=== PATIENT | male | born 1965 | race African-American/Black ===

== ENCOUNTER 2018-02-07 14:11 | Emergency (ER) | payer MEDICAID ==
[~2018-02-07] VITALS: Ht 182.9 cm; Wt 111.0 kg
[~2018-02-07 14:11] MED LIST: FOLI-43; KEPP500; PHEN100O2
[2018-02-07 14:35] VITALS: BP 106/79
== END 2018-02-07 17:33 | disposition home or self-care (01) ==
LOC: ER 15:48
DX: M79.661 Pain in right lower leg (principal); M71.21 Synovial cyst of popliteal space [Baker], right knee; E11.9 Type 2 diabetes mellitus without complications; G40.909 Epilepsy, unspecified, not intractable, without status epilepticus
CPT/HCPCS: 73590; 93971; 99284

== ENCOUNTER 2018-09-28 22:08 | Inpatient (IN) | payer MEDICAID ==
[~2018-09-28] VITALS: Ht 182.9 cm; Wt 117.9 kg
[2018-09-29] MEDS ORDERED: ONDANSETRON HCL 4MG/2ML INJ IV STA (00:51)
[2018-09-29] MEDS ORDERED: SODIUM CHLORIDE 0.9% 1,000 ML IV ONE (00:51)
[2018-09-29 01:47] LABS: BASOPHILS % 0.5 % (0.0-2.0); EOSINOPHILS % 2.1 % (0.0-5.0); HEMOGLOBIN. 12.2 g/dL (14.0-18.0); LYMPHOCYTES % 11.1 % (20.0-50.0); MEAN CORPUSCULAR HEMOGLOBIN 24.8 pg (28.0-32.0); MEAN CORPUSCULAR VOLUME 79.2 fL (80.0-94.0); MEAN PLATELET VOLUME 8.3 fl (7.4-10.4); MONOCYTES % 6.8 % (2.0-8.0); NEUTROPHILS % 79.5 % (40.0-76.0); PLATELET 169 x1000/uL (130-400); RED BLOOD CELL COUNT 4.92 mill/uL (4.7-6.1); RED CELL DISTRIBUTION WIDTH 12.6 % (11.6-14.6)
[2018-09-29 01:51] LABS: INR 1.1; PROTHROMBIN TIME 10.8 sec (9.1-11.1)
[2018-09-29 01:54] LABS: CHLORIDE 108 mEq/L (98-107)
[2018-09-29 02:01] LABS: ETHANOL BLOOD < 10 mg/dL
[2018-09-29 03:19] LABS: *BENZODIAZEPINES SCREEN URINE NEGATIVE (NEGATIVE); *COCAINE SCREEN URINE NEGATIVE (NEGATIVE); METHADONE URINE SCREEN NEGATIVE (NEGATIVE)
[2018-09-29 03:20] LABS: *AMPHETAMINES SCREEN URINE NEGATIVE (NEGATIVE); *BARBITURATES SCREEN URINE PRESUMTIVE POSITIVE (NEGATIVE); CANNABINOID URINE SCREEN NEGATIVE (NEGATIVE); OPIATES URINE SCREEN NEGATIVE (NEGATIVE); PHENCYCLIDINE URINE SCREEN NEGATIVE (NEGATIVE)
[2018-09-29 04:45] VITALS: BP 106/59
[2018-09-29 04:50] VITALS: BP 106/59
[2018-09-29] MEDS ORDERED: FOLI20CA PO (06:39)
[2018-09-29] MEDS ORDERED: KEPP500 PO (06:41)
[2018-09-29] MEDS ORDERED: PHEN97.22 PO (06:42)
[2018-09-29] MEDS ORDERED: PNEUMOCOCCAL 23-VAL P-SAC VAC 0.5 ML IM ONE (08:00)
[2018-09-29 08:03] VITALS: BP 109/54
[2018-09-29] MEDS ORDERED: INFLUENZA VIRUS VACCINE(AFLURIA) 0.5ML SYR IM ONE (10:00)
[2018-09-29] MEDS ORDERED: FOLIC ACID 1MG TABLET PO SCH (10:15)
[2018-09-29] MEDS ORDERED: LEVETIRACETAM 500MG/5ML CUP PO SCH (10:15)
[2018-09-29] MEDS ORDERED: PHENOBARBITAL 100MG TABLET PO SCH ×2 (11:00→21:00)
[2018-09-29 12:00] VITALS: BP 109/55
[2018-09-29] MEDS: ENOXAPARIN 30MG/0.3ML SYR SUBCUT SCH ×2 (12:23→21:05)
[2018-09-29] MEDS: PHENOBARBITAL 100MG TABLET PO SCH (14:17)
[2018-09-29] MEDS: LEVETIRACETAM 500MG TABLET PO SCH ×2 (14:17→21:04)
[2018-09-29] MEDS ORDERED: PHENYTOIN SODIUM 1000MG in SODIUM CHLORIDE 0.9% 100ML IV NR (17:15)
[2018-09-29 20:00] VITALS: BP 124/79
[2018-09-30] VITALS: BP 106/52
[2018-09-30 04:00] VITALS: BP 102/58
[2018-09-30] MEDS ORDERED: PNEUMOCOCCAL 23-VAL P-SAC VAC 0.5 ML IM ONE (06:00)
[2018-09-30 08:00] VITALS: BP 111/53
[2018-09-30] MEDS: PHENOBARBITAL 100MG TABLET PO SCH (09:00)
[2018-09-30] MEDS ORDERED: FOLIC ACID 1MG TABLET PO SCH (09:00)
[2018-09-30] MEDS: LEVETIRACETAM 500MG TABLET PO SCH ×2 (10:09→20:39)
[2018-09-30] MEDS: ENOXAPARIN 30MG/0.3ML SYR SUBCUT SCH ×2 (10:31→20:38)
[2018-09-30 12:00] VITALS: BP_SYST 113; BP_SYST 130; BP_DIAS 41; BP_DIAS 84
[2018-09-30] MEDS ORDERED: PHENYTOIN SODIUM 600 MG in SODIUM CHLORIDE 0.9% 100 ML IV NR (13:00)
[2018-09-30 16:00] VITALS: BP 118/40
[2018-09-30 20:00] VITALS: BP 114/61
[2018-09-30] MEDS: PHENYTOIN SODIUM EXTENDED 100MG CAPSULE PO SCH (20:39)
[2018-10-01] VITALS: BP 109/64
[2018-10-01 04:00] VITALS: BP 108/68
[2018-10-01 08:00] VITALS: BP 114/60
[2018-10-01] MEDS: LEVETIRACETAM 500MG TABLET PO SCH ×2 (08:53→21:22)
[2018-10-01] MEDS: ENOXAPARIN 30MG/0.3ML SYR SUBCUT SCH ×2 (08:54→21:23)
[2018-10-01] MEDS: PHENYTOIN SODIUM EXTENDED 100MG CAPSULE PO SCH ×2 (08:54→21:22)
[2018-10-01 09:34] LABS: BASOPHILS % 0.7 % (0.0-2.0); EOSINOPHILS % 2.9 % (0.0-5.0); HEMATOCRIT. 38.6 % (42.0-52.0); LYMPHOCYTES % 15.8 % (20.0-50.0); MEAN CORPUSCULAR HEMOGLOBIN 24.7 pg (28.0-32.0); MEAN PLATELET VOLUME 8.4 fl (7.4-10.4); NEUTROPHILS % 71.6 % (40.0-76.0); PLATELET 164 x1000/uL (130-400); RED BLOOD CELL COUNT 4.88 mill/uL (4.7-6.1); RED CELL DISTRIBUTION WIDTH 12.7 % (11.6-14.6)
[2018-10-01 09:41] LABS: CHLORIDE 107 mEq/L (98-107)
[2018-10-01 12:00] VITALS: BP 101/56
[2018-10-01 16:00] VITALS: BP 114/62
[2018-10-01 20:00] VITALS: BP 110/62
[2018-10-01 21:03] LABS: CLARITY URINE CLEAR (CLEAR); COLOR URINE YELLOW (YELLOW); KETONES URINE NEGATIVE (NEGATIVE); LEUKOCYTE ESTERASE URINE TRACE (NEGATIVE); NITRITE URINE NEGATIVE (NEGATIVE); OCCULT BLOOD URINE 2+ (NEGATIVE); PH URINE 6.5 (4.5-8.0); PROTEIN URINE NEGATIVE (NEGATIVE); SPECIFIC GRAVITY URINE 1.005 (1.005-1.030); UROBILINOGEN URINE 0.2 E.U./dL (0.2-1.0)
[2018-10-02] VITALS: BP 115/60
[2018-10-02 04:00] VITALS: BP 110/68
[2018-10-02 08:00] VITALS: BP 132/60
[2018-10-02] MEDS: LEVETIRACETAM 500MG TABLET PO SCH (08:53)
[2018-10-02] MEDS: PHENYTOIN SODIUM EXTENDED 100MG CAPSULE PO SCH (08:54)
[2018-10-02] MEDS: ENOXAPARIN 30MG/0.3ML SYR SUBCUT SCH (08:54)
[2018-10-02 12:06] VITALS: BP 96/57
[2018-10-02 16:00] VITALS: BP 103/76
[2018-10-02 17:36] VITALS: BP 103/76
== END 2018-10-02 18:45 | disposition home or self-care (01) | DRG 48 ==
LOC: ER 22:08 → 5WST 09-29 02:46 → EDBEDREQTM 09-29 03:00 → EDBEDREQ 09-29 03:00 → ENRESERV 09-29 03:30
PROVIDERS: ADMIT Internal Medicine; ATTEND Internal Medicine
DX: G90.8 Other disorders of autonomic nervous system (principal); G93.89 Other specified disorders of brain; R31.9 Hematuria, unspecified; G40.909 Epilepsy, unspecified, not intractable, without status epilepticus; Z90.49 Acquired absence of other specified parts of digestive tract; Z91.19 Patient's noncompliance with other medical treatment and regimen
CPT/HCPCS: 36415; 71045; 74176; 80048; 80184; 80185; 80305; 83605; 84484; 90686; 90732; 93005; 96361; 96374; 97116; 97162; 97166; 99285; C1893; G0482; J1165; J1650; J2405; J7030; J7050

== ENCOUNTER 2018-11-20 11:54 | Emergency (ER) | payer MEDICAID ==
[~2018-11-20] VITALS: Ht 182.9 cm; Wt 118.0 kg
[~2018-11-20 11:54] MED LIST changes: -FOLI-43; +FOLI20CA PO; -KEPP500; +KEPP500 PO; -PHEN100O2; +PHEN97.22 PO
[2018-11-20] MEDS ORDERED: IBUPROFEN 800MG TABLET PO ONE (13:30)
[2018-11-20 15:23] VITALS: BP 128/95
== END 2018-11-20 15:25 | disposition home or self-care (01) ==
LOC: ER 11:54
DX: M79.671 Pain in right foot (principal)
CPT/HCPCS: 73630; 99283

== ENCOUNTER 2021-12-07 21:23 | Emergency (ER) | payer MEDICAID ==
[~2021-12-07] VITALS: Ht 182.9 cm; Wt 132.0 kg
[2021-12-07] MEDS ORDERED: IBUPROFEN 600MG TABLET PO STA (21:57)
[2021-12-07 22:08] VITALS: BP 153/110
[2021-12-08] MEDS ORDERED: IBUP-2028 MT (00:01)
== END 2021-12-08 00:47 | disposition home or self-care (01) ==
LOC: ER 21:23
DX: S93.602A Unspecified sprain of left foot, initial encounter (principal); G40.909 Epilepsy, unspecified, not intractable, without status epilepticus; Z90.49 Acquired absence of other specified parts of digestive tract; X50.1XXA Overexertion from prolonged static or awkward postures, initial encounter; Y93.89 Activity, other specified; Y92.39 Other specified sports and athletic area as the place of occurrence of the external cause
CPT/HCPCS: 29515; 73630; 99283